=== PATIENT | male | born 1960 | race Two or more races ===

== ENCOUNTER 2020-09-07 08:09 | Day surgery (SDC) | payer OTHER ==
[~2020-09-07] VITALS: Ht 177.8 cm; Wt 111.0 kg
[~2020-09-07 08:09] MED LIST: ASPI-630 PO; ATOR20TA58 PO; HYDROmorphone 2 MG/ML VIAL IVP PRN; LISI20TA18 PO; METF500T16 PO; MINERAL OIL for SURGERY 10 ML VIAL. MC ONE; MORPHINE SULFATE 2 MG/ML INJ. IVP PRN; PROCHLORPERAZINE 10 MG/2 ML VIAL. IVP PRN; fentaNYL PF VIAL 100 MCG/2 ML VIAL IVP PRN
[2020-09-07] MEDS ORDERED: INSULIN LISPRO 100 UNIT/ML 3ML VIAL for OP,RR ONLY. SQ PRN (08:45)
[2020-09-07 08:50] VITALS: BP 143/78
[2020-09-07] MEDS: IV RINGERS,LACTATED 1000ML 1,000 ML IV SCH (08:55)
[2020-09-07] MEDS: ACETAMINOPHEN 500 MG TABLET PO PRN (08:56)
[2020-09-07] MEDS ORDERED: PROPOFOL 10 MG/ML (20ML) VIAL. IV ONE (09:02)
[2020-09-07] MEDS ORDERED: LIDOCAINE 2% PF 5 ML VIAL. ONE (09:02)
[2020-09-07] MEDS ORDERED: KETOROLAC 30 MG/ML VIAL. ONE (09:02)
[2020-09-07] MEDS ORDERED: ROCURONIUM 50 MG/5 ML VIAL. ONE (09:02)
[2020-09-07] MEDS ORDERED: ONDANSETRON PF 4 MG/2 ML VIAL. ONE (09:02)
[2020-09-07] MEDS ORDERED: fentaNYL PF VIAL 100 MCG/2 ML VIAL ONE ×2 (09:03→10:56)
[2020-09-07] MEDS ORDERED: MIDAZOLAM HCL/PF 2 MG/2 ML VIAL. ONE (09:03)
[2020-09-07] MEDS: BUPIVACAINE-EPI 0.25%-1:200000 MPF 30 ML VIAL. ONE (09:43)
[2020-09-07] MEDS ORDERED: NEOSTIGMINE METHYLSULFATE 5 MG/5 ML SYRINGE. ONE (09:57)
[2020-09-07] MEDS ORDERED: GLYCOPYRROLATE 1 MG/5 ML VIAL. ONE (09:58)
--- NOTE | 2020-09-07 10:25 | PDOC4 ---
Operative Note Operative Note Date: September 07, 2020 at 1022 Preoperative diagnosis: Incarcerated ventral hernia Postoperative diagnosis: Same Procedure: Robotic assisted laparoscopic ventral hernia repair with mesh Surgeon: Amrik Dictation: Patient is a 59-year-old male with a midline ventral hernia. Procedure of robotic assisted laparoscopic ventral hernia repair with mesh was explained to the patient detail risk benefits were also discussed including bleeding infection injury to intra-abdominal contents possible necessitating further open operations alternatives to this procedure also discussed with the patient who seemed to understand and gave a verbal written consent to have the procedure performed. Patient was taken to the operating room placed in the supine position general anesthesia was initiated once patient was sleeping in bed his abdomen was prepped and draped in usual sterile fashion using ChloraPrep. An area in the left upper quadrant was injected with quarter pe rcent Marcaine with epinephrine incision was made 11 blade scalpel and a 5 mm Visiport was placed under direct visualization into the abdomen creating pneumoperitoneum once this was complete 5 mm scope was placed within the abdomen which was inspected no other abnormalities were noted. 8 mm ventral port was placed in the left midabdomen and an 8 mm da Amador port was placed in the left lower abdomen. A 5 mm Visiport was changed out for an 8 mm da Amador port. The da Amador robot was brought and docked all port sites surgeon went to the robotic console using a grasper and Endo Nba scissors the hernia sac and contents were reduced. The hernia defect was then closed with a running 2 OV lock nonabsorbable suture. Ventral light ST mesh was then placed over the hernia defect this was sewn into place circumferentially with a 2 OV lock absorbable suture. Sutures removed from the abdomen the robot was undocked and removed from the operative field the ports were removed pneumoperitoneum was reduced all port sites were closed with 4 subcuticular Monocryl Mastisol Steri-Strips and island dressings were applied. Patient was awakened and extubated in the operating room taken to recovery in stable condition all sponge instrument needle counts listed as correct estimated blood loss 5 mL GASPER KEN MD Sep 07, 2020 10:25
[2020-09-07] MEDS ORDERED: OXYC1TAB15 PO (10:26)
--- NOTE | 2020-09-07 10:28 | DISCH ---
DISCHARGE INSTRUCTIONS Condition on Discharge Condition on Discharge: Stable Activity After Discharge Activity Instructions for Disc: Avoid exertion Other activity instructions: No lifting more than 20 pounds for 2 weeks Diet after Discharge Diet after Discharge: Regular Wound Incision Care Other wound/incision instructi: May shower in 24 hours Contacting the DRGil after DC Call your doctor for: If your condition worsens Follow-Up Follow up with: Dr. Ken in 2 weeks GASPER KEN MD Sep 07, 2020 10:28
[2020-09-07 10:36] VITALS: BP 129/65
[2020-09-07] MEDS: fentaNYL PF VIAL 100 MCG/2 ML VIAL IVP PRN (10:58)
[2020-09-07] MEDS ORDERED: oxyCODONE/APAP 5/325 1 TAB TABLET ONE (11:06)
[2020-09-07] MEDS ORDERED: oxyCODONE/APAP 5/325 1 TAB TABLET PO ONE (11:15)
== END 2020-09-07 11:39 | disposition home or self-care (01) ==
LOC: SURG 08:09
PROVIDERS: ATTEND Surgery
DX: K43.6 Other and unspecified ventral hernia with obstruction, without gangrene (principal); I10 Essential (primary) hypertension; E78.00 Pure hypercholesterolemia, unspecified; E11.9 Type 2 diabetes mellitus without complications; M19.90 Unspecified osteoarthritis, unspecified site; Z79.82 Long term (current) use of aspirin; Z79.899 Other long term (current) drug therapy; Z79.84 Long term (current) use of oral hypoglycemic drugs; Z87.891 Personal history of nicotine dependence; Z72.89 Other problems related to lifestyle; Z98.890 Other specified postprocedural states
CPT/HCPCS: 49653; 82962; A4364; A4930; A6219; A6258; A6402; C1781; J0690; J1885; J2250; J2405; J2704; J2710; J3010; J3490; S2900; A4657